=== PATIENT | male | born 1995 | race Hispanic/Latino ===

== ENCOUNTER 2023-04-11 20:45 | Emergency (ER) | payer OTHER ==
[~2023-04-11] VITALS: Ht 170.2 cm; Wt 77.0 kg
[2023-04-11] VITALS (8 sets, daily range): BP systolic 124–156; BP diastolic 73–102
[2023-04-11 22:26] LABS: BASO% 0.4 % (0-3); EOS% 0.2 % (0-8); HEMATOCRIT 44.1 % (39.0-50.0); HEMOGLOBIN 14.5 g/dl (14.0-18.0); LYMPH% 13.8 % (15-41); MEAN CELL VOLUME 82.4 fL CALC (80.0-100.0); MEAN CORPUSCULAR HGB 27.1 pG CALC (26.0-32.0); MEAN CORPUSCULAR HGB CONC 32.9 g/dL CAL (32.0-36.0); MONO% 5.5 % (2-13); NEUT# 10.68 thou/uL (1.82-7.42); NEUT% 79.1 % (42-76); RED BLOOD COUNT 5.35 mill/uL (4.70-6.10)
[2023-04-11 22:27] LABS: URINE BLOOD DIPSTICK Trace-intact (NEGATIVE); URINE COLOR Yellow; URINE GLUCOSE - DIPSTICK Negative (NEGATIVE); URINE KETONE 80 mg/dL (NEGATIVE); URINE LEUK ESTERASE Negative (NEGATIVE); URINE NITRITE - DIPSTICK Negative (Negative); URINE PROTEIN - DIPSTICK >=300 mg/dL (NEG-TRACE); URINE UROBILINOGEN - DIPSTICK 0.2 E.U./dL (0.2)
[2023-04-11 22:38] LABS: ALBUMIN 5.6 g/dL (3.2-5.0); ALKALINE PHOSPHATASE 78 u/l (38-126); BILIRUBIN, TOTAL 0.7 mg/dL (0.2-1.3); BUN 19 mg/dL (9-20); BUN/CREATININE RATIO 14 (12-20 (CALC)); CARBON DIOXIDE 21 mmol/l (22-30); CPK 711 u/l (55-170); CREATININE 1.4 mg/dL (0.7-1.3); GFR FOR AFR.AMER. > 60 ML/MIN (>=60 (CALC)); GFR OTHER RACES > 60 ML/MIN (>=60 (CALC)); MAGNESIUM 1.4 mg/dL (1.6-2.3); POTASSIUM 3.6 mmol/l (3.5-5.1); SGOT/AST 75 u/l (17-59); SODIUM 140 mmol/l (137-146)
[2023-04-11 22:39] LABS: URINE WBC 0-2 WBC/hpf (0-5)
[2023-04-11 22:40] LABS: ANION GAP 24 (6-22 (CALC)); CHLORIDE 99 mmol/l (95-108)
== END 2023-04-11 23:27 | disposition home or self-care (01) | DRG 923 ==
LOC: ED 20:45
PROVIDERS: Family Medicine
DX: T67.5XXA Heat exhaustion, unspecified, initial encounter (principal); X30.XXXA Exposure to excessive natural heat, initial encounter; Y93.89 Activity, other specified; Y92.89 Other specified places as the place of occurrence of the external cause; Y99.0 Civilian activity done for income or pay